=== PATIENT | male | born 1940 | race Caucasian/White ===

== ENCOUNTER 2020-04-13 11:40 | Emergency (ER) | payer OTHER ==
[~2020-04-13] VITALS: Ht 175.3 cm; Wt 77.2 kg
[~2020-04-13 11:40] MED LIST: ATEN25TA PO; GLIM4TAB8 PO; INSU100V8 SQ; LOVA10TA PO
--- NOTE | 2020-04-13 11:53 | NUR ---
LOW BLOOD SUGER, EMS REPORTS BS LOW THEN 135 AFTER GIVING D50 AND THIAMINE. BS IS 132 NOW. PT EMS REPORTS HX ALCOHOL ABUSE. PT IN BED WITH CONT SPO2, BPQ 30 MIN, SIDE RAILS UP X2,CALL LIGHT IN REACH.
[2020-04-13] MEDS ORDERED: DEXTROSE 10% 500 ML IV ONE (12:07)
--- NOTE | 2020-04-13 12:09 | NUR ---
TASK RN COVERING MEAL BREAK. PT RESTING, NAD. 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 PT UPDATED ON POC. URINAL PLACED ON TRAY TABLE, PT AWARE OF NEED FOR UA. CALL LIGHT WITHIN REACH.
[2020-04-13 12:19] LABS: BASOPHILS % (AUTO) 1 % (0-1); EOSINOPHILS # (AUTO) 0.01 x10^3/uL (0-0.4); EOSINOPHILS % (AUTO) 0 % (1-7); LYMPHOCYTES # (AUTO) 0.42 x10^3/uL (1-3.4); LYMPHOCYTES % (AUTO) 4 % (22-44); MD NO; MEAN CORPUSCULAR HEMOGLOBIN 36.1 pg (27.5-34.5); MEAN CORPUSCULAR HGB CONC 33.3 g/dL (33.2-36.2); MEAN CORPUSCULAR VOLUME 108.5 fL (81-97); MEAN PLATELET VOLUME 9.7 fL (7.4-10.4); MONOCYTES # (AUTO) 0.39 x10^3/uL (0.2-0.8); MONOCYTES % (AUTO) 4 % (2-9); NEUTROPHILS # (AUTO) 8.73 x10^3/uL (1.8-6.8); NEUTROPHILS % (AUTO) 90 % (42-75); PLATELET COUNT 196 x10^3/uL (130-400); RED BLOOD COUNT 3.17 x10^6/uL (4.38-5.82); RED CELL DISTRIBUTION WIDTH 16.5 % (9.4-14.8)
[2020-04-13 12:31] LABS: ALANINE AMINOTRANSFERASE 23 U/L (12-78); ALBUMIN 2.3 g/dL (3.4-5.0); ANION GAP 13 mmol/L (5-15); CALCIUM 8.3 mg/dL (8.5-10.1); CHLORIDE 101 mmol/L (98-107); CREATININE 0.89 mg/dL (0.7-1.3)
--- NOTE | 2020-04-13 12:31 | NUR ---
PT ATTEMPTED TO USE URINAL, URINATED ON BLANKET AND PANTS-UNABLE TO GET SPECIMEN. MED REQUEST FOR D10 TO PHARM AT 1220
[2020-04-13 12:36] LABS: ALKALINE PHOSPHATASE 135 U/L (45-117); BILIRUBIN,TOTAL 1.8 mg/dL (0.2-1.0); TOTAL PROTEIN 6.6 g/dL (6.4-8.2); TROPONIN I < 0.015 ng/mL (0.000-0.045)
[2020-04-13] MEDS ORDERED: POTASSIUM CHLORIDE 20 MEQ PACKET ONE (12:41)
[2020-04-13] MEDS ORDERED: POTASSIUM CHLORIDE 40 MEQ in DEXTROSE 10% 1,000 ML IV ONE (13:00)
[2020-04-13] MEDS ORDERED: POTASSIUM CHLORIDE 20 MEQ PACKET PO ONE (13:00)
--- NOTE | 2020-04-13 13:05 | NUR ---
CALLED [facility], SPOKE WITH CHANDAN, STATED THEY DO NOT CONTRACT WITH [facility].
[2020-04-13] MEDS ORDERED: POTASSIUM CHLORIDE 20 MEQ, MAGNESIUM SULFATE 2 GM, THIAMINE 200 MG, MVI ADULT 10 ML, FO... IV SCH (13:09)
--- NOTE | 2020-04-13 13:10 | NUR ---
CALLED [facility], SPOKE WITH ABIDA FERRO. STATED THEY WILL ACCEPT PT TRANSFER. PT AGREES TO TRANSFER.
[2020-04-13] MEDS ORDERED: LIDODERM 5% PATCH TD PRN (13:30)
[2020-04-13] MEDS ORDERED: BISACODYL 10 MG SUPP PR PRN (13:30)
[2020-04-13] MEDS ORDERED: ONDANSETRON ODT 4 MG PO PRN (13:30)
[2020-04-13] MEDS ORDERED: POLYETHYLENE GLYCOL 17 GM PACKET PO PRN (13:30)
[2020-04-13] MEDS ORDERED: hydrALAzine 20 MG/ML, 1ML IVPush PRN (13:30)
[2020-04-13] MEDS ORDERED: MELATONIN 5 MG TABLET PO PRN (13:30)
[2020-04-13] MEDS ORDERED: HEPARIN 5,000 UNITS/ML, 1ML SQ SCH (13:30)
[2020-04-13] MEDS ORDERED: ACETAMINOPHEN 325 MG TABLET PO PRN (13:30)
[2020-04-13 13:41] LABS: MICROSCOPIC AUTO
[2020-04-13 13:50] LABS: FREE T4 (FREE THYROXINE) 1.29 ng/dL (0.76-1.46)
--- NOTE | 2020-04-13 14:18 | NUR ---
PT SIGNED TRANSFER FORM. PRIMARY RN CALED REPORT TO BERTHA MERRITT IN [facility] ER. TRANSPORT BEING ARRANGED THROUGH [facility].
--- NOTE | 2020-04-13 14:19 | NUR ---
PT to ct
[2020-04-13] MEDS ORDERED: OMNIPAQUE 350 MG/ML, 75ML BOTTLE ONE (14:26)
[2020-04-13] MEDS ORDERED: LIDODERM REMOVE PATCH NOTE XX PRN (14:30)
--- NOTE | 2020-04-13 15:43 | NUR ---
EMS ESTIMATED THEY WOULD BE HERE BY 1500. THEY STILL HAVE NOT ARRIVED. EMS CALLED, STATED NO AMBULANCES AVAILABLE AT THIS TIME. NEXT AVAILABLE RIG WILL BE HEADED HERE. [facility] UPDATED.
[2020-04-13] MEDS ORDERED: INSULIN LISPRO 100 UNITS/ML, PEN SQ-INSULIN SCH (16:00)
[2020-04-13 16:12] VITALS: BP 124/74
[2020-04-14] MEDS ORDERED: PANTOPRAZOLE 40MG TABLET PO SCH (07:30)
[2020-04-14] MEDS ORDERED: LEVOFLOXACIN/PMX 750MG/150ML 150 ML IV SCH (10:00)
== END 2020-04-13 16:12 ==
LOC: ED 12:25 → UNDOADMOB 12:46 → EDIP 12:46 → INTOOBSV 12:46 → SUATTDRO 13:00 → ED 16:12
PROVIDERS: ATTEND Hospitalist
DX: R41.82 Altered mental status, unspecified (principal); E11.649 Type 2 diabetes mellitus with hypoglycemia without coma; E11.10 Type 2 diabetes mellitus with ketoacidosis without coma; E87.6 Hypokalemia; I10 Essential (primary) hypertension; E78.00 Pure hypercholesterolemia, unspecified; R10.9 Unspecified abdominal pain
CPT/HCPCS: 36415; 71045; 71260; 80053; 80307; 81001; 82962; 83036; 84439; 84443; 84484; 85025; 87077; 87086; 87186; 93005; 96365; 96366; 99284; J3480; Q9967

== ENCOUNTER 2021-03-22 09:31 | Inpatient (IN) | payer MEDICARE, OTHER ==
[~2021-03-22] VITALS: Ht 175.3 cm; Wt 83.0 kg
--- NOTE | 2021-03-22 09:56 | NUR ---
PT BIB EMS FOR CO WEAKNESS AND HYPERGLYCEMIA. PER EMS BS 412. PT STATES HE HAS BEEN FEELING WEAK FOR 2 WEEKS AND LACK OF CORDINATION. PT HX OF DIABETES, STATES HE DOESNT HAVE IT ANYMORE AND OFF MEDS FOR 3 MONTHS. COUPLE DAYS OF N/V. PT A&OX4, NEURO INTACT. TACHYPNEIC, TACHY, 113. HOSPITAL GLUCOMETER READS HIGH. PT DRY MUCOUS MEMBRANES. 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 IV ESTABLISHED 22 RIGHT WRIST.
[2021-03-22] MEDS ORDERED: SODIUM CHLORIDE 0.9% 1,000ML IVBOLUS ONE ×3 (10:00→13:30)
[2021-03-22 10:42] LABS: FIO2 ROOM AIR %
[2021-03-22 10:44] LABS: PH, VENOUS 7.013 pH (7.320-7.420)
[2021-03-22 10:51] LABS: ALANINE AMINOTRANSFERASE 7 U/L (12-78); ALBUMIN 1.2 g/dL (3.4-5.0); CREATININE 0.45 mg/dL (0.7-1.3)
[2021-03-22 10:53] LABS: ALKALINE PHOSPHATASE 41 U/L (45-117); BILIRUBIN,TOTAL 0.3 mg/dL (0.2-1.0); TOTAL PROTEIN 2.6 g/dL (6.4-8.2)
[2021-03-22 11:00] LABS: ACETONE, SERUM Large (80mg/dL) (Negative)
[2021-03-22 11:07] LABS: ANION GAP 16 mmol/L (5-15); CHLORIDE 130 mmol/L (98-107)
[2021-03-22 11:15] LABS: CALCIUM < 5.0 mg/dL (8.5-10.1)
--- NOTE | 2021-03-22 11:17 | NUR ---
STAND BEDSIDE, MAX ASSIST TO USE URINAL. PT WEAK.
--- NOTE | 2021-03-22 11:17 | NUR ---
RAFFY PENN MADE AWARE OF CRITICAL POTASSIUM OF 2.2, CO2 OF 3 & CALCIUM <5 PRIMARY RN MADE AWARE
[2021-03-22 11:22] LABS: MICROSCOPIC NOT IND
[2021-03-22] MEDS ORDERED: POTASSIUM CHLORIDE 40 MEQ in SODIUM CHLORIDE 0.9% 500 ML IV ONE ×2 (12:00→22:30)
[2021-03-22 12:05] LABS: ANION GAP 21 mmol/L (5-15); CALCIUM 9.1 mg/dL (8.5-10.1); CHLORIDE 108 mmol/L (98-107)
[2021-03-22 12:06] LABS: CREATININE 1.81 mg/dL (0.7-1.3)
--- NOTE | 2021-03-22 12:15 | NUR ---
ASSISTED PT TO USE URINAL LAYING ON SIDE.
--- NOTE | 2021-03-22 12:28 | NUR ---
LABS HEMOLYZED. LABS REDRAWN.
[2021-03-22 12:46] LABS: BASOPHILS % (AUTO) 0 % (0-1); EOSINOPHILS % (AUTO) 0 % (1-7); LYMPHOCYTES % (AUTO) 5 % (22-44); MEAN CORPUSCULAR HEMOGLOBIN 30.7 pg (27.5-34.5); MEAN CORPUSCULAR HGB CONC 31.3 g/dL (33.2-36.2); MEAN PLATELET VOLUME 11.9 fL (7.4-10.4); MONOCYTES % (AUTO) 4 % (2-9); NEUTROPHILS % (AUTO) 91 % (42-75); PLATELET COUNT 177 x10^3/uL (130-400); RED BLOOD COUNT 4.46 x10^6/uL (4.38-5.82); RED CELL DISTRIBUTION WIDTH 16.4 % (9.4-14.8)
--- NOTE | 2021-03-22 13:02 | NUR ---
SEEN BY MD FARAH. AWAITING FURTHER ORDERS.
[2021-03-22] MEDS ORDERED: CYAN100T22 PO (13:11)
[2021-03-22] MEDS ORDERED: ATEN50TA41 PO (13:11)
[2021-03-22] MEDS ORDERED: MAGN400T9 PO (13:11)
[2021-03-22] MEDS ORDERED: TAMS-11 PO (13:11)
[2021-03-22] MEDS ORDERED: MELA3TAB31 PO (13:11)
[2021-03-22] MEDS ORDERED: FOLI0.4T5 PO (13:11)
[2021-03-22] MEDS ORDERED: ALLO300T PO (13:11)
[2021-03-22] MEDS ORDERED: SENN-190 PO (13:11)
[2021-03-22] MEDS ORDERED: ATOR-2 PO (13:11)
--- NOTE | 2021-03-22 13:15 | NUR ---
GAVE PT WATER. PT CONFUSED TO SITUATION AND PLACE
[2021-03-22] MEDS ORDERED: hydrALAzine 20 MG/ML, 1ML IVPush PRN (13:30)
[2021-03-22] MEDS ORDERED: ONDANSETRON 2MG/ML, 2ML IVPush PRN (13:30)
[2021-03-22] MEDS ORDERED: REGULAR INSULIN 100 UNITS in SODIUM CHLORIDE 0.9% 99 ML IV PRN (13:30)
[2021-03-22] MEDS ORDERED: GLUCAGON 1 MG IM PRN (13:30)
[2021-03-22] MEDS ORDERED: ACETAMINOPHEN 325 MG TABLET PO PRN (13:30)
[2021-03-22] MEDS ORDERED: DEXTROSE 50%, 50ML SYRINGE IVPush PRN (13:30)
[2021-03-22] MEDS ORDERED: DEXTROSE 4 GM TAB.CHEW PO PRN (13:30)
--- NOTE | 2021-03-22 13:56 | NUR ---
REPORT TO FILI. PRABHJOT FOR [facility]
[2021-03-22] MEDS ORDERED: PHARMACY MAY ADJ FOR RENAL FX MC PRN (14:00)
[2021-03-22] MEDS: SODIUM CHLORIDE 0.9% 1,000 ML IV SCH ×2 (14:55→17:45)
[2021-03-22] MEDS: ENOXAPARIN 40 MG/0.4 ML SQ SCH (14:57)
[2021-03-22] MEDS: REGULAR INSULIN 100 UNITS in SODIUM CHLORIDE 0.9% 99 ML IV PRN ×2 (14:57→21:18)
[2021-03-22 17:24] LABS: ANION GAP 19 mmol/L (5-15); CALCIUM 9.2 mg/dL (8.5-10.1); CHLORIDE 117 mmol/L (98-107); CREATININE 1.85 mg/dL (0.7-1.3)
[2021-03-22] MEDS: ATORVASTATIN 20 MG TABLET PO SCH (21:07)
[2021-03-22] MEDS: SODIUM CHLORIDE FLUSH 10ML SYR IVF SCH (21:10)
[2021-03-22 21:45] LABS: CALCIUM 9.4 mg/dL (8.5-10.1)
[2021-03-22 22:03] LABS: ANION GAP 15 mmol/L (5-15); CHLORIDE 125 mmol/L (98-107)
[2021-03-22] MEDS ORDERED: POTASSIUM CHLORIDE 20 MEQ PACKET PO ONE (22:30)
[2021-03-23] MEDS: SODIUM CHLORIDE 0.9% 1,000 ML IV SCH ×2 (00:34→04:30)
[2021-03-23 01:08] LABS: ANION GAP 10 mmol/L (5-15); CALCIUM 9.3 mg/dL (8.5-10.1); CHLORIDE 131 mmol/L (98-107); CREATININE 1.31 mg/dL (0.7-1.3)
[2021-03-23] MEDS: D5%-0.45NACL+KCL 20MEQ 1,000 ML IV SCH ×2 (01:18→09:44)
[2021-03-23 04:48] LABS: BASOPHILS % (AUTO) 1 % (0-1); EOSINOPHILS % (AUTO) 0 % (1-7); LYMPHOCYTES % (AUTO) 7 % (22-44); MEAN CORPUSCULAR HEMOGLOBIN 30.6 pg (27.5-34.5); MEAN CORPUSCULAR HGB CONC 32.5 g/dL (33.2-36.2); MEAN PLATELET VOLUME 10.9 fL (7.4-10.4); MONOCYTES % (AUTO) 12 % (2-9); NEUTROPHILS % (AUTO) 81 % (42-75); PLATELET COUNT 136 x10^3/uL (130-400); RED BLOOD COUNT 3.75 x10^6/uL (4.38-5.82); RED CELL DISTRIBUTION WIDTH 15.7 % (9.4-14.8)
[2021-03-23 04:55] LABS: ALANINE AMINOTRANSFERASE 15 U/L (12-78); ALBUMIN 2.7 g/dL (3.4-5.0); ANION GAP 8 mmol/L (5-15); CALCIUM 9.7 mg/dL (8.5-10.1); CHLORIDE 130 mmol/L (98-107); CREATININE 1.24 mg/dL (0.7-1.3)
[2021-03-23 05:06] LABS: ALKALINE PHOSPHATASE 76 U/L (45-117); BILIRUBIN,TOTAL 0.4 mg/dL (0.2-1.0); TOTAL PROTEIN 5.4 g/dL (6.4-8.2)
[2021-03-23] MEDS: POTASSIUM ACID PHOSPHATE 500 MG TABLET.SOL PO SCH ×3 (07:23→20:36)
[2021-03-23] MEDS ORDERED: POTASSIUM PHOSPHATE 44 MEQ in SODIUM CHLORIDE 0.9% 500 ML IV ONE (07:30)
[2021-03-23] MEDS: CYANOCOBALOMIN 100MCG TABLET PO SCH (08:47)
[2021-03-23] MEDS: ATENOLOL 50 MG TABLET PO SCH (08:47)
[2021-03-23] MEDS: ALLOPURINOL 300 MG TABLET PO SCH (08:47)
[2021-03-23] MEDS: TAMSULOSIN 0.4 MG CAP.ER.24H PO SCH (08:47)
[2021-03-23] MEDS: SODIUM CHLORIDE FLUSH 10ML SYR IVF SCH ×2 (08:47→20:35)
[2021-03-23 10:08] LABS: ANION GAP 6 mmol/L (5-15); CALCIUM 9.7 mg/dL (8.5-10.1); CHLORIDE 130 mmol/L (98-107)
[2021-03-23 10:09] LABS: CREATININE 1.33 mg/dL (0.7-1.3)
[2021-03-23] MEDS: D5%-0.45% NACL 1,000 ML IV PRN ×2 (10:50→18:12)
[2021-03-23] MEDS: REGULAR INSULIN 100 UNITS in SODIUM CHLORIDE 0.9% 99 ML IV PRN (11:40)
[2021-03-23 13:58] LABS: ANION GAP 5 mmol/L (5-15); CALCIUM 9.8 mg/dL (8.5-10.1); CHLORIDE 131 mmol/L (98-107); CREATININE 1.24 mg/dL (0.7-1.3)
[2021-03-23] MEDS: ENOXAPARIN 40 MG/0.4 ML SQ SCH (14:37)
[2021-03-23 18:10] LABS: ANION GAP 5 mmol/L (5-15); CALCIUM 9.9 mg/dL (8.5-10.1); CHLORIDE 134 mmol/L (98-107); CREATININE 1.21 mg/dL (0.7-1.3)
[2021-03-23] MEDS: DEXTROSE 5% 1,000 ML IV SCH (18:23)
[2021-03-23] MEDS: ATORVASTATIN 20 MG TABLET PO SCH (20:35)
[2021-03-23] MEDS: OXYcodone IR 5MG TABLET PO PRN (20:36)
[2021-03-23 23:16] LABS: ANION GAP 6 mmol/L (5-15); CALCIUM 9.9 mg/dL (8.5-10.1); CHLORIDE 129 mmol/L (98-107)
[2021-03-23 23:17] LABS: CREATININE 1.19 mg/dL (0.7-1.3)
[2021-03-24] MEDS: OXYcodone IR 5MG TABLET PO PRN (01:10)
[2021-03-24 01:52] LABS: ANION GAP 7 mmol/L (5-15); CALCIUM 9.8 mg/dL (8.5-10.1); CHLORIDE 129 mmol/L (98-107); CREATININE 1.15 mg/dL (0.7-1.3)
[2021-03-24] MEDS: POTASSIUM ACID PHOSPHATE 500 MG TABLET.SOL PO SCH (02:49)
[2021-03-24] MEDS: DEXTROSE 5% 1,000 ML IV SCH (02:50)
[2021-03-24 06:01] LABS: ANION GAP 5 mmol/L (5-15); CHLORIDE 129 mmol/L (98-107)
[2021-03-24 06:02] LABS: CREATININE 1.07 mg/dL (0.7-1.3)
[2021-03-24] MEDS ORDERED: PHARMACY INSTRUCTION MC PRN (07:00)
[2021-03-24] MEDS: INSULIN LISPRO 100 UNITS/ML, PEN SQ-INSULIN SCH ×4 (07:00→20:53)
[2021-03-24] MEDS: CYANOCOBALOMIN 100MCG TABLET PO SCH (07:17)
[2021-03-24] MEDS: ALLOPURINOL 300 MG TABLET PO SCH (07:17)
[2021-03-24] MEDS: ATENOLOL 50 MG TABLET PO SCH (07:17)
[2021-03-24] MEDS: SODIUM CHLORIDE FLUSH 10ML SYR IVF SCH ×2 (07:18→20:51)
[2021-03-24] MEDS: INSULIN GLARGINE 100 UNITS/ML, PEN SQ-INSULIN SCH ×3 (07:18→20:55)
[2021-03-24] MEDS: TAMSULOSIN 0.4 MG CAP.ER.24H PO SCH (07:19)
[2021-03-24 07:46] LABS: BASOPHILS % (AUTO) 0 % (0-1); EOSINOPHILS % (AUTO) 0 % (1-7); LYMPHOCYTES % (AUTO) 6 % (22-44); MEAN CORPUSCULAR HEMOGLOBIN 30.6 pg (27.5-34.5); MEAN CORPUSCULAR HGB CONC 32.8 g/dL (33.2-36.2); MEAN PLATELET VOLUME 10.7 fL (7.4-10.4); MONOCYTES % (AUTO) 6 % (2-9); NEUTROPHILS % (AUTO) 87 % (42-75); PLATELET COUNT 80 x10^3/uL (130-400); RED BLOOD COUNT 3.03 x10^6/uL (4.38-5.82); RED CELL DISTRIBUTION WIDTH 16.3 % (9.4-14.8)
[2021-03-24 08:19] LABS: CHOL/HDL RATIO 2.8; LDL/HDL RATIO 0.6 (0.5-3.0)
[2021-03-24] MEDS: LACTATED RINGERS 1,000 ML IV SCH ×2 (08:40→16:00)
[2021-03-24 13:49] LABS: ANION GAP 6 mmol/L (5-15); CALCIUM 10.2 mg/dL (8.5-10.1); CHLORIDE 128 mmol/L (98-107); CREATININE 1.07 mg/dL (0.7-1.3)
[2021-03-24] MEDS: ENOXAPARIN 40 MG/0.4 ML SQ SCH (13:49)
[2021-03-24 19:00] VITALS: BP 136/79
[2021-03-24 19:05] VITALS: BP 136/79
[2021-03-24] MEDS: ATORVASTATIN 20 MG TABLET PO SCH (20:51)
[2021-03-24 20:53] LABS: ANION GAP 6 mmol/L (5-15); CHLORIDE 127 mmol/L (98-107); CREATININE 0.87 mg/dL (0.7-1.3)
[2021-03-25 00:28] VITALS: BP 155/66
[2021-03-25 05:34] LABS: BASOPHILS % (AUTO) 0 % (0-1); EOSINOPHILS % (AUTO) 0 % (1-7); LYMPHOCYTES % (AUTO) 10 % (22-44); MEAN CORPUSCULAR HEMOGLOBIN 31.1 pg (27.5-34.5); MEAN CORPUSCULAR HGB CONC 33.9 g/dL (33.2-36.2); MEAN PLATELET VOLUME 11.8 fL (7.4-10.4); MONOCYTES % (AUTO) 9 % (2-9); NEUTROPHILS % (AUTO) 81 % (42-75); PLATELET COUNT 71 x10^3/uL (130-400); RED BLOOD COUNT 2.75 x10^6/uL (4.38-5.82); RED CELL DISTRIBUTION WIDTH 15.8 % (9.4-14.8)
[2021-03-25 05:41] LABS: ANION GAP 7 mmol/L (5-15); CALCIUM 9.3 mg/dL (8.5-10.1); CHLORIDE 127 mmol/L (98-107); CREATININE 0.78 mg/dL (0.7-1.3)
[2021-03-25] MEDS: LACTATED RINGERS 1,000 ML IV SCH (05:42)
[2021-03-25] MEDS ORDERED: MAGNESIUM SULFATE PMX 2GM/50ML 50 ML IV ONE (06:30)
[2021-03-25] MEDS ORDERED: POTASSIUM CHLORIDE 20 MEQ in SODIUM CHLORIDE 0.9% 250 ML IV ONE ×2 (06:30)
[2021-03-25] MEDS ORDERED: POTASSIUM PHOSPHATE 22 MEQ in SODIUM CHLORIDE 0.9% 500 ML IV ONE (06:30)
[2021-03-25] MEDS: INSULIN LISPRO 100 UNITS/ML, PEN SQ-INSULIN SCH ×5 (07:00→21:44)
[2021-03-25] MEDS: CYANOCOBALOMIN 100MCG TABLET PO SCH (07:40)
[2021-03-25] MEDS: ALLOPURINOL 300 MG TABLET PO SCH (07:40)
[2021-03-25] MEDS: ATENOLOL 50 MG TABLET PO SCH (07:40)
[2021-03-25] MEDS: TAMSULOSIN 0.4 MG CAP.ER.24H PO SCH (07:41)
[2021-03-25] MEDS: SODIUM CHLORIDE FLUSH 10ML SYR IVF SCH ×2 (07:42→21:45)
[2021-03-25] MEDS: INSULIN GLARGINE 100 UNITS/ML, PEN SQ-INSULIN SCH ×2 (09:12→21:45)
[2021-03-25 09:16] VITALS: BP 122/71
[2021-03-25 09:36] LABS: ACETONE, SERUM Moderate(40mg/dL) (Negative)
[2021-03-25 11:45] LABS: ANION GAP 7 mmol/L (5-15); CALCIUM 9.5 mg/dL (8.5-10.1); CHLORIDE 131 mmol/L (98-107); CREATININE 0.82 mg/dL (0.7-1.3)
[2021-03-25] MEDS ORDERED: SODIUM BICARBONATE 8.4% 150 MEQ in DEXTROSE 5% 1,000 ML IV SCH (12:30)
[2021-03-25] MEDS: SODIUM CHLORIDE 0.45% 1,000 ML IV SCH (16:37)
[2021-03-25 19:56] VITALS: BP 117/55
[2021-03-25] MEDS: ATORVASTATIN 20 MG TABLET PO SCH (21:44)
[2021-03-26] MEDS: OXYcodone IR 5MG TABLET PO PRN
[2021-03-26 00:10] VITALS: BP 128/61
[2021-03-26] MEDS: SODIUM CHLORIDE 0.45% 1,000 ML IV SCH (03:13)
[2021-03-26 06:32] LABS: BASOPHILS % (AUTO) 1 % (0-1); EOSINOPHILS % (AUTO) 2 % (1-7); LYMPHOCYTES % (AUTO) 20 % (22-44); MEAN CORPUSCULAR HEMOGLOBIN 30.8 pg (27.5-34.5); MEAN CORPUSCULAR HGB CONC 33.8 g/dL (33.2-36.2); MEAN PLATELET VOLUME 10.9 fL (7.4-10.4); MONOCYTES % (AUTO) 8 % (2-9); NEUTROPHILS % (AUTO) 69 % (42-75); PLATELET COUNT 67 x10^3/uL (130-400); RED BLOOD COUNT 2.54 x10^6/uL (4.38-5.82); RED CELL DISTRIBUTION WIDTH 15.9 % (9.4-14.8)
[2021-03-26 06:33] LABS: ANION GAP 5 mmol/L (5-15); CALCIUM 8.6 mg/dL (8.5-10.1); CHLORIDE 125 mmol/L (98-107); CREATININE 0.73 mg/dL (0.7-1.3)
[2021-03-26 06:45] VITALS: BP 111/64
[2021-03-26] MEDS: INSULIN LISPRO 100 UNITS/ML, PEN SQ-INSULIN SCH ×4 (07:00→21:17)
[2021-03-26] MEDS: TAMSULOSIN 0.4 MG CAP.ER.24H PO SCH (08:00)
[2021-03-26] MEDS: ALLOPURINOL 300 MG TABLET PO SCH (08:00)
[2021-03-26] MEDS: SODIUM CHLORIDE FLUSH 10ML SYR IVF SCH ×2 (08:00→21:16)
[2021-03-26] MEDS: ATENOLOL 50 MG TABLET PO SCH (08:00)
[2021-03-26] MEDS: CYANOCOBALOMIN 100MCG TABLET PO SCH (08:00)
[2021-03-26] MEDS: INSULIN GLARGINE 100 UNITS/ML, PEN SQ-INSULIN SCH (09:00)
[2021-03-26] MEDS: POLYETHYLENE GLYCOL 17 GM PACKET PO PRN (10:03)
[2021-03-26] MEDS: POTASSIUM CHLORIDE 20 MEQ in D5%-0.2% NACL 1,000 ML IV SCH ×2 (10:55→23:50)
[2021-03-26] MEDS: FONDAPARINUX 2.5 MG/0.5 ML SQ SCH (13:57)
[2021-03-26] MEDS: POTASSIUM CHLORIDE 20 MEQ PACKET PO SCH (17:44)
[2021-03-26 21:10] VITALS: BP 110/62
[2021-03-26] MEDS: ATORVASTATIN 20 MG TABLET PO SCH (21:16)
[2021-03-26 23:52] VITALS: BP 118/72
[2021-03-27] MEDS ORDERED: SENNA/DOCUSATE TABLET PO PRN (00:30)
[2021-03-27] MEDS ORDERED: CATHFLO-ALTEPLASE 2 MG/2 ML CATHFLUSH ONE (04:00)
[2021-03-27 05:20] LABS: BASOPHILS % (AUTO) 1 % (0-1); EOSINOPHILS % (AUTO) 2 % (1-7); LYMPHOCYTES % (AUTO) 20 % (22-44); MONOCYTES % (AUTO) 8 % (2-9); NEUTROPHILS % (AUTO) 70 % (42-75); PLATELET COUNT 81 x10^3/uL (130-400); RED BLOOD COUNT 2.34 x10^6/uL (4.38-5.82); RED CELL DISTRIBUTION WIDTH 15.9 % (9.4-14.8)
[2021-03-27 05:35] LABS: CHLORIDE 119 mmol/L (98-107)
[2021-03-27 05:46] LABS: ALANINE AMINOTRANSFERASE 16 U/L (12-78); ALBUMIN 2.1 g/dL (3.4-5.0); ALKALINE PHOSPHATASE 65 U/L (45-117); ANION GAP 6 mmol/L (5-15); BILIRUBIN,TOTAL 0.7 mg/dL (0.2-1.0); CALCIUM 8.1 mg/dL (8.5-10.1); CREATININE 0.75 mg/dL (0.7-1.3); TOTAL PROTEIN 4.5 g/dL (6.4-8.2)
[2021-03-27] MEDS ORDERED: POTASSIUM PHOSPHATE 22 MEQ in SODIUM CHLORIDE 0.9% 500 ML IV ONE (06:30)
[2021-03-27] MEDS ORDERED: MAGNESIUM SULFATE PMX 4GM/100M 100 ML IVPB ONE (06:30)
[2021-03-27 07:22] VITALS: BP 114/64
[2021-03-27] MEDS: POLYETHYLENE GLYCOL 17 GM PACKET PO PRN (07:38)
[2021-03-27] MEDS: INSULIN LISPRO 100 UNITS/ML, PEN SQ-INSULIN SCH ×4 (07:39→19:41)
[2021-03-27] MEDS: SODIUM CHLORIDE FLUSH 10ML SYR IVF SCH ×2 (09:00→19:42)
[2021-03-27] MEDS ORDERED: FAMOTIDINE 20 MG TABLET PO SCH (09:00)
[2021-03-27] MEDS ORDERED: INSULIN GLARGINE 100 UNITS/ML, PEN SQ-INSULIN SCH (09:00)
[2021-03-27] MEDS ORDERED: FAMOTIDINE 20 MG TABLET ONE (09:07)
[2021-03-27] MEDS: FONDAPARINUX 2.5 MG/0.5 ML SQ SCH (09:09)
[2021-03-27] MEDS: POTASSIUM CHLORIDE 20 MEQ PACKET PO SCH ×2 (09:10→17:45)
[2021-03-27] MEDS: ATENOLOL 50 MG TABLET PO SCH (09:10)
[2021-03-27] MEDS: TAMSULOSIN 0.4 MG CAP.ER.24H PO SCH (09:10)
[2021-03-27] MEDS: ALLOPURINOL 300 MG TABLET PO SCH (09:10)
[2021-03-27] MEDS: CYANOCOBALOMIN 100MCG TABLET PO SCH (09:10)
[2021-03-27] MEDS: INSULIN GLARGINE 100 UNITS/ML, PEN SQ-INSULIN SCH (09:11)
[2021-03-27] MEDS: SENNA/DOCUSATE TABLET PO PRN (09:18)
[2021-03-27 15:51] VITALS: BP 98/62
[2021-03-27] MEDS: PANTOPRAZOLE 40 MG IV IVPush SCH (17:45)
[2021-03-27] MEDS: POTASSIUM CHLORIDE 20 MEQ in D5%-0.2% NACL 1,000 ML IV SCH (17:45)
[2021-03-27 18:33] VITALS: BP 100/66
[2021-03-27] MEDS: ATORVASTATIN 20 MG TABLET PO SCH (19:41)
[2021-03-27] MEDS ORDERED: TEMAZEPAM 15 MG CAPSULE PO PRN (22:30)
[2021-03-28 00:09] VITALS: BP 115/67
[2021-03-28] MEDS ORDERED: MELATONIN 5 MG TABLET ONE (01:59)
[2021-03-28 04:51] LABS: MEAN CORPUSCULAR HEMOGLOBIN 31.3 pg (27.5-34.5); MEAN CORPUSCULAR HGB CONC 33.5 g/dL (33.2-36.2); MEAN PLATELET VOLUME 10.7 fL (7.4-10.4); PLATELET COUNT 87 x10^3/uL (130-400); RED BLOOD COUNT 2.39 x10^6/uL (4.38-5.82); RED CELL DISTRIBUTION WIDTH 16.5 % (9.4-14.8)
[2021-03-28 04:59] LABS: ANION GAP 6 mmol/L (5-15); CALCIUM 8.7 mg/dL (8.5-10.1); CHLORIDE 118 mmol/L (98-107); CREATININE 0.79 mg/dL (0.7-1.3)
[2021-03-28] MEDS: PANTOPRAZOLE 40 MG IV IVPush SCH ×2 (05:15→17:18)
[2021-03-28 05:41] LABS: ANISOCYTOSIS 1+; BAND#(MANUAL) 0.06 x10^3/uL; BANDS%(MANUAL) 1 % (0-7); EOS#(MANUAL) 0.23 x10^3/uL (0.0-0.4); EOS% (MANUAL) 4 % (1-7); LYMPHS% (MANUAL) 21 % (22-44); MONOS% (MANUAL) 7 % (2-9); MYELOCYTES# (MANUAL) 0.06 x10^3/uL (0-0); MYELOCYTES% (MANUAL) 1 % (0-0); POLYCHROMASIA 1+; SEG#(MANUAL) 3.76 x10^3/uL (1.8-6.8); SEGS% (MANUAL) 66 % (42-75)
[2021-03-28 05:42] LABS: <PLATELET ESTIMATE> DECREASED; <PLT MORPHOLOGY> NORMAL PLT MORPH
[2021-03-28 07:55] VITALS: BP 126/64
[2021-03-28] MEDS: POTASSIUM CHLORIDE 20 MEQ PACKET PO SCH ×2 (07:59→16:12)
[2021-03-28] MEDS: INSULIN LISPRO 100 UNITS/ML, PEN SQ-INSULIN SCH ×4 (08:15→20:47)
[2021-03-28] MEDS: ATENOLOL 50 MG TABLET PO SCH (08:17)
[2021-03-28] MEDS: ALLOPURINOL 300 MG TABLET PO SCH (08:17)
[2021-03-28] MEDS: TAMSULOSIN 0.4 MG CAP.ER.24H PO SCH (08:18)
[2021-03-28] MEDS: CYANOCOBALOMIN 100MCG TABLET PO SCH (08:18)
[2021-03-28] MEDS: FONDAPARINUX 2.5 MG/0.5 ML SQ SCH (08:19)
[2021-03-28] MEDS: SODIUM CHLORIDE FLUSH 10ML SYR IVF SCH ×2 (08:22→20:47)
[2021-03-28 08:24] VITALS: BP 126/63
[2021-03-28] MEDS: INSULIN GLARGINE 100 UNITS/ML, PEN SQ-INSULIN SCH (08:26)
[2021-03-28] MEDS ORDERED: FAMOTIDINE 20 MG TABLET PO SCH (09:00)
[2021-03-28 13:32] VITALS: BP 103/53
[2021-03-28 14:00] VITALS: BP 118/61
[2021-03-28] MEDS: POLYETHYLENE GLYCOL 17 GM PACKET PO PRN (16:12)
[2021-03-28 16:46] LABS: OCCULT BLOOD POSITIVE (NEGATIVE)
[2021-03-28] MEDS: POTASSIUM CHLORIDE 20 MEQ in D5%-0.2% NACL 1,000 ML IV SCH (17:08)
[2021-03-28 19:37] VITALS: BP 142/69
[2021-03-28] MEDS: RISPERIDONE 1 MG TABLET PO SCH (20:46)
[2021-03-28] MEDS: ATORVASTATIN 20 MG TABLET PO SCH (20:47)
[2021-03-29 01:01] VITALS: BP 117/58
[2021-03-29] MEDS: PANTOPRAZOLE 40 MG IV IVPush SCH ×2 (04:26→17:08)
[2021-03-29] MEDS: POTASSIUM CHLORIDE 20 MEQ in D5%-0.2% NACL 1,000 ML IV SCH ×2 (04:35→17:08)
[2021-03-29] MEDS: TAMSULOSIN 0.4 MG CAP.ER.24H PO SCH (07:36)
[2021-03-29] MEDS: CYANOCOBALOMIN 100MCG TABLET PO SCH (07:36)
[2021-03-29] MEDS: ALLOPURINOL 300 MG TABLET PO SCH (07:36)
[2021-03-29] MEDS: INSULIN LISPRO 100 UNITS/ML, PEN SQ-INSULIN SCH ×4 (07:36→20:31)
[2021-03-29] MEDS: ATENOLOL 50 MG TABLET PO SCH (07:36)
[2021-03-29] MEDS: POTASSIUM CHLORIDE 20 MEQ PACKET PO SCH ×2 (07:36→17:08)
[2021-03-29] MEDS: INSULIN GLARGINE 100 UNITS/ML, PEN SQ-INSULIN SCH (07:37)
[2021-03-29] MEDS: SODIUM CHLORIDE FLUSH 10ML SYR IVF SCH ×2 (07:37→20:30)
[2021-03-29] MEDS: FONDAPARINUX 2.5 MG/0.5 ML SQ SCH (07:37)
[2021-03-29 07:38] VITALS: BP 147/78
[2021-03-29 13:21] VITALS: BP 126/74
[2021-03-29 16:03] LABS: MEAN CORPUSCULAR HEMOGLOBIN 31.1 pg (27.5-34.5); MEAN CORPUSCULAR HGB CONC 33.1 g/dL (33.2-36.2); MEAN PLATELET VOLUME 10.4 fL (7.4-10.4); PLATELET COUNT 143 x10^3/uL (130-400); RED BLOOD COUNT 2.37 x10^6/uL (4.38-5.82)
[2021-03-29 16:28] LABS: INTERNATIONAL NORMALIZED RATIO 1.08 (0.93-1.1); PROTHROMBIN TIME 11.5 Seconds (9.6-11.5)
[2021-03-29 16:34] LABS: ANISOCYTOSIS 1+; BAND#(MANUAL) 0.61 x10^3/uL; BANDS%(MANUAL) 11 % (0-7); BASOS#(MANUAL) 0.06 x10^3/uL (0-0.1); BASOS% (MANUAL) 1 % (0-1); EOS#(MANUAL) 0.06 x10^3/uL (0.0-0.4); EOS% (MANUAL) 1 % (1-7); LYMPH#(MANUAL) 1.05 x10^3/uL (1-3.4); LYMPHS% (MANUAL) 19 % (22-44); METAMYELOCYTES# (MANUAL) 0.06 x10^3/uL (0-0); METAMYELOCYTES% (MANUAL) 1 % (0-1); MONOS#(MANUAL) 0.22 x10^3/uL (0.3-2.7); MONOS% (MANUAL) 4 % (2-9); MYELOCYTES# (MANUAL) 0.06 x10^3/uL (0-0); MYELOCYTES% (MANUAL) 1 % (0-0); SEG#(MANUAL) 3.41 x10^3/uL (1.8-6.8); SEGS% (MANUAL) 62 % (42-75)
[2021-03-29 16:35] LABS: <PLATELET ESTIMATE> ADEQUATE; <PLT MORPHOLOGY> NORMAL PLT MORPH; OVALOCYTES 1+; POLYCHROMASIA 1+
[2021-03-29 18:26] VITALS: BP 113/67
[2021-03-29] MEDS: ATORVASTATIN 20 MG TABLET PO SCH (20:28)
[2021-03-29] MEDS: RISPERIDONE 1 MG TABLET PO SCH (20:28)
[2021-03-30] VITALS (9 sets, daily range): BP systolic 85–128; BP diastolic 39–73
[2021-03-30] MEDS: PANTOPRAZOLE 40 MG IV IVPush SCH ×2 (04:53→17:00)
[2021-03-30] MEDS: POTASSIUM CHLORIDE 20 MEQ PACKET PO SCH ×3 (08:00→19:08)
[2021-03-30] MEDS: ATENOLOL 50 MG TABLET PO SCH (08:13)
[2021-03-30] MEDS: SODIUM CHLORIDE FLUSH 10ML SYR IVF SCH ×2 (08:14→21:59)
[2021-03-30] MEDS: INSULIN LISPRO 100 UNITS/ML, PEN SQ-INSULIN SCH ×4 (08:19→21:00)
[2021-03-30] MEDS: INSULIN GLARGINE 100 UNITS/ML, PEN SQ-INSULIN SCH (09:00)
[2021-03-30] MEDS: CYANOCOBALOMIN 100MCG TABLET PO SCH (09:00)
[2021-03-30] MEDS: ALLOPURINOL 300 MG TABLET PO SCH (09:00)
[2021-03-30] MEDS: FONDAPARINUX 2.5 MG/0.5 ML SQ SCH (09:00)
[2021-03-30] MEDS: TAMSULOSIN 0.4 MG CAP.ER.24H PO SCH (09:00)
[2021-03-30] MEDS ORDERED: CHLORHEXIDINE 15 ML UDC PO ONE (09:00)
[2021-03-30] MEDS ORDERED: EPHEDRINE 50 MG/ML, 1ML ONE ×2 (09:13→09:38)
[2021-03-30] MEDS ORDERED: PROPOFOL 10 MG/ML, 20ML ONE (09:13)
[2021-03-30] MEDS ORDERED: VASOPRESSIN 20 UNIT/ML, 1ML ONE (09:13)
[2021-03-30] MEDS ORDERED: PROMETHAZINE 12.5 MG SUPP PR PRN (10:00)
[2021-03-30] MEDS ORDERED: PROMETHAZINE 25 MG/ML, 1ML IVPush PRN (10:00)
[2021-03-30] MEDS ORDERED: ONDANSETRON 2MG/ML, 2ML IVPush PRN (10:00)
[2021-03-30] MEDS ORDERED: MIDAZOLAM 1 MG/ML, 2ML IV PRN (10:00)
[2021-03-30] MEDS ORDERED: MEPERIDINE/PF 25MG/0.5ML IVPush PRN (10:00)
[2021-03-30] MEDS ORDERED: HYDROmorphone 1 MG/ML, 1ML INJ IVPush PRN (10:00)
[2021-03-30] MEDS ORDERED: ALBUTEROL SULFATE 2.5 MG/3 ML NPPB PRN (10:00)
[2021-03-30] MEDS ORDERED: OXYcodone 5 MG/5 ML ORAL.SOL UDC PO PRN (10:00)
[2021-03-30] MEDS ORDERED: DIAZEPAM 5 MG/ML, 2ML IVPush PRN (10:00)
[2021-03-30] MEDS ORDERED: DIPHENHYDRAMINE 50 MG/ML, 1ML IVPush PRN ×2 (10:00)
[2021-03-30] MEDS ORDERED: LABETALOL 5MG/ML, 20ML IV PRN (10:00)
[2021-03-30] MEDS ORDERED: FENTANYL PF 100 MCG/2ML IV PRN (10:00)
[2021-03-30] MEDS ORDERED: EPHEDRINE 50 MG/ML, 1ML IVPush PRN (10:00)
[2021-03-30] MEDS ORDERED: hydrALAzine 20 MG/ML, 1ML IV PRN (10:00)
[2021-03-30] MEDS: SUCRALFATE 1 GM/10 ML UDC PO SCH ×3 (13:24→21:58)
[2021-03-30] MEDS: POTASSIUM CHLORIDE 20 MEQ in D5%-0.2% NACL 1,000 ML IV SCH (19:01)
[2021-03-30] MEDS: PANTOPRAZOLE 40MG TABLET PO SCH (21:58)
[2021-03-30] MEDS: ATORVASTATIN 20 MG TABLET PO SCH (21:58)
[2021-03-30] MEDS: RISPERIDONE 1 MG TABLET PO SCH (21:59)
[2021-03-30] MEDS: MELATONIN 5 MG TABLET PO PRN (23:02)
[2021-03-31 00:49] VITALS: BP 100/57
[2021-03-31] MEDS ORDERED: CATHFLO-ALTEPLASE 2 MG/2 ML CATHFLUSH ONE (05:30)
[2021-03-31] MEDS ORDERED: [UNRECOGNIZED DRUG - MIXTURE] MC SCH (06:00)
[2021-03-31] MEDS: POTASSIUM CHLORIDE 20 MEQ in D5%-0.2% NACL 1,000 ML IV SCH (06:18)
[2021-03-31] MEDS: PANTOPRAZOLE 40MG TABLET PO SCH ×2 (06:26→16:14)
[2021-03-31 06:59] VITALS: BP 135/62
[2021-03-31] MEDS: INSULIN GLARGINE 100 UNITS/ML, PEN SQ-INSULIN SCH (08:07)
[2021-03-31] MEDS: INSULIN LISPRO 100 UNITS/ML, PEN SQ-INSULIN SCH ×4 (08:07→20:41)
[2021-03-31] MEDS: FONDAPARINUX 2.5 MG/0.5 ML SQ SCH (08:08)
[2021-03-31] MEDS: CYANOCOBALOMIN 100MCG TABLET PO SCH (08:09)
[2021-03-31] MEDS: SUCRALFATE 1 GM/10 ML UDC PO SCH ×4 (08:09→20:28)
[2021-03-31] MEDS: ATENOLOL 50 MG TABLET PO SCH (08:09)
[2021-03-31] MEDS: TAMSULOSIN 0.4 MG CAP.ER.24H PO SCH (08:09)
[2021-03-31] MEDS: POTASSIUM CHLORIDE 20 MEQ PACKET PO SCH ×2 (08:09→16:14)
[2021-03-31] MEDS: ALLOPURINOL 300 MG TABLET PO SCH (08:09)
[2021-03-31] MEDS: SODIUM CHLORIDE FLUSH 10ML SYR IVF SCH ×2 (08:11→20:29)
[2021-03-31 13:39] VITALS: BP 101/58
[2021-03-31 18:27] VITALS: BP 109/58
[2021-03-31] MEDS: MELATONIN 5 MG TABLET PO PRN (20:28)
[2021-03-31] MEDS: RISPERIDONE 1 MG TABLET PO SCH (20:28)
[2021-03-31] MEDS: ATORVASTATIN 20 MG TABLET PO SCH (20:28)
[2021-03-31] MEDS: OXYcodone IR 5MG TABLET PO PRN (20:32)
[2021-04-01 03:20] VITALS: BP 105/59
[2021-04-01] MEDS: PANTOPRAZOLE 40MG TABLET PO SCH ×2 (06:32→17:04)
[2021-04-01 06:57] VITALS: BP 119/68
[2021-04-01] MEDS: INSULIN LISPRO 100 UNITS/ML, PEN SQ-INSULIN SCH ×4 (07:00→21:31)
[2021-04-01] MEDS: CYANOCOBALOMIN 100MCG TABLET PO SCH (07:54)
[2021-04-01] MEDS: INSULIN GLARGINE 100 UNITS/ML, PEN SQ-INSULIN SCH (07:54)
[2021-04-01] MEDS: ALLOPURINOL 300 MG TABLET PO SCH (07:54)
[2021-04-01] MEDS: TAMSULOSIN 0.4 MG CAP.ER.24H PO SCH (07:54)
[2021-04-01] MEDS: ATENOLOL 50 MG TABLET PO SCH (07:55)
[2021-04-01] MEDS: SUCRALFATE 1 GM/10 ML UDC PO SCH ×4 (07:55→21:32)
[2021-04-01] MEDS: SODIUM CHLORIDE FLUSH 10ML SYR IVF SCH ×2 (07:55→21:32)
[2021-04-01] MEDS: POTASSIUM CHLORIDE 20 MEQ PACKET PO SCH ×2 (07:55→17:04)
[2021-04-01 12:19] VITALS: BP 128/73
[2021-04-01] MEDS: QUETIAPINE 25MG TABLET PO SCH (17:04)
[2021-04-01 20:51] VITALS: BP 134/73
[2021-04-01] MEDS: ATORVASTATIN 20 MG TABLET PO SCH (21:31)
[2021-04-01] MEDS: MELATONIN 5 MG TABLET PO PRN (21:31)
[2021-04-01] MEDS ORDERED: QUETIAPINE 100MG TABLET PO SCH (22:00)
[2021-04-02 01:05] VITALS: BP 105/68
[2021-04-02] MEDS: PANTOPRAZOLE 40MG TABLET PO SCH ×2 (05:25→16:42)
[2021-04-02] MEDS: QUETIAPINE 25MG TABLET PO SCH (05:25)
[2021-04-02] MEDS: OXYcodone IR 5MG TABLET PO PRN (05:25)
[2021-04-02 06:16] LABS: BASOPHILS % (AUTO) 1 % (0-1); EOSINOPHILS % (AUTO) 2 % (1-7); LYMPHOCYTES % (AUTO) 16 % (22-44); MEAN CORPUSCULAR HEMOGLOBIN 31.4 pg (27.5-34.5); MEAN CORPUSCULAR HGB CONC 33.7 g/dL (33.2-36.2); MEAN PLATELET VOLUME 9.5 fL (7.4-10.4); MONOCYTES % (AUTO) 10 % (2-9); NEUTROPHILS % (AUTO) 72 % (42-75); PLATELET COUNT 194 x10^3/uL (130-400); RED BLOOD COUNT 3.05 x10^6/uL (4.38-5.82); RED CELL DISTRIBUTION WIDTH 16.6 % (9.4-14.8)
[2021-04-02 06:27] LABS: ALANINE AMINOTRANSFERASE 15 U/L (12-78); ALBUMIN 2.1 g/dL (3.4-5.0); ANION GAP 6 mmol/L (5-15); CALCIUM 9.2 mg/dL (8.5-10.1); CHLORIDE 111 mmol/L (98-107); CREATININE 1.04 mg/dL (0.7-1.3)
[2021-04-02 06:29] LABS: ALKALINE PHOSPHATASE 91 U/L (45-117); BILIRUBIN,TOTAL 0.5 mg/dL (0.2-1.0); TOTAL PROTEIN 5.9 g/dL (6.4-8.2)
[2021-04-02] MEDS: SUCRALFATE 1 GM/10 ML UDC PO SCH ×4 (06:50→20:19)
[2021-04-02 07:10] VITALS: BP 100/64
[2021-04-02] MEDS: INSULIN LISPRO 100 UNITS/ML, PEN SQ-INSULIN SCH ×4 (08:02→20:22)
[2021-04-02] MEDS: POTASSIUM CHLORIDE 20 MEQ PACKET PO SCH ×2 (08:03→16:37)
[2021-04-02] MEDS: SODIUM CHLORIDE FLUSH 10ML SYR IVF SCH ×2 (08:03→20:19)
[2021-04-02] MEDS: ALLOPURINOL 300 MG TABLET PO SCH (08:03)
[2021-04-02] MEDS: ATENOLOL 50 MG TABLET PO SCH (08:04)
[2021-04-02] MEDS: CYANOCOBALOMIN 100MCG TABLET PO SCH (08:04)
[2021-04-02] MEDS: TAMSULOSIN 0.4 MG CAP.ER.24H PO SCH (08:04)
[2021-04-02] MEDS ORDERED: INSULIN GLARGINE 100 UNITS/ML, PEN SQ-INSULIN SCH (09:00)
[2021-04-02 13:30] VITALS: BP 121/67
[2021-04-02] MEDS: QUETIAPINE 200 MG TABLET PO SCH (18:22)
[2021-04-02 19:27] VITALS: BP 104/67
[2021-04-02] MEDS: ATORVASTATIN 20 MG TABLET PO SCH (20:19)
[2021-04-03 02:12] VITALS: BP 140/66
[2021-04-03 06:39] VITALS: BP 119/73
[2021-04-03] MEDS: INSULIN LISPRO 100 UNITS/ML, PEN SQ-INSULIN SCH ×4 (07:00→21:37)
[2021-04-03] MEDS: SUCRALFATE 1 GM/10 ML UDC PO SCH ×4 (07:34→21:37)
[2021-04-03] MEDS: POTASSIUM CHLORIDE 20 MEQ PACKET PO SCH ×2 (07:37→16:06)
[2021-04-03] MEDS: QUETIAPINE 25MG TABLET PO SCH (08:10)
[2021-04-03] MEDS: PANTOPRAZOLE 40MG TABLET PO SCH ×2 (08:10→16:05)
[2021-04-03] MEDS: ALLOPURINOL 300 MG TABLET PO SCH (08:12)
[2021-04-03] MEDS: TAMSULOSIN 0.4 MG CAP.ER.24H PO SCH (08:12)
[2021-04-03] MEDS: CYANOCOBALOMIN 100MCG TABLET PO SCH (08:12)
[2021-04-03] MEDS: ATENOLOL 50 MG TABLET PO SCH (08:12)
[2021-04-03] MEDS: INSULIN GLARGINE 100 UNITS/ML, PEN SQ-INSULIN SCH (08:20)
[2021-04-03] MEDS: SODIUM CHLORIDE FLUSH 10ML SYR IVF SCH ×2 (08:29→21:00)
[2021-04-03 12:03] VITALS: BP 100/64
[2021-04-03] MEDS: QUETIAPINE 200 MG TABLET PO SCH (16:05)
[2021-04-03 19:04] VITALS: BP 107/65
[2021-04-03] MEDS: ATORVASTATIN 20 MG TABLET PO SCH (21:37)
[2021-04-04 00:18] VITALS: BP 122/73
[2021-04-04] MEDS: PANTOPRAZOLE 40MG TABLET PO SCH ×2 (05:51→16:44)
[2021-04-04 06:52] VITALS: BP 135/78
[2021-04-04] MEDS: INSULIN LISPRO 100 UNITS/ML, PEN SQ-INSULIN SCH ×4 (06:59→21:26)
[2021-04-04] MEDS: SUCRALFATE 1 GM/10 ML UDC PO SCH ×4 (08:44→21:26)
[2021-04-04] MEDS: POTASSIUM CHLORIDE 20 MEQ PACKET PO SCH ×2 (08:44→16:38)
[2021-04-04] MEDS: ALLOPURINOL 300 MG TABLET PO SCH (08:45)
[2021-04-04] MEDS: CYANOCOBALOMIN 100MCG TABLET PO SCH (08:45)
[2021-04-04] MEDS: QUETIAPINE 25MG TABLET PO SCH (08:45)
[2021-04-04] MEDS: ATENOLOL 50 MG TABLET PO SCH (08:46)
[2021-04-04] MEDS: TAMSULOSIN 0.4 MG CAP.ER.24H PO SCH (08:46)
[2021-04-04] MEDS: SODIUM CHLORIDE FLUSH 10ML SYR IVF SCH ×2 (08:49→19:49)
[2021-04-04] MEDS: INSULIN GLARGINE 100 UNITS/ML, PEN SQ-INSULIN SCH (10:13)
[2021-04-04 13:59] VITALS: BP 138/72
[2021-04-04] MEDS: SENNA/DOCUSATE TABLET PO PRN (16:06)
[2021-04-04] MEDS: POLYETHYLENE GLYCOL 17 GM PACKET PO PRN (16:06)
[2021-04-04] MEDS: metFORMIN 500 MG TABLET PO SCH (16:37)
[2021-04-04] MEDS: QUETIAPINE 200 MG TABLET PO SCH (16:37)
[2021-04-04 20:11] VITALS: BP 94/54
[2021-04-04] MEDS: MELATONIN 5 MG TABLET PO PRN (21:26)
[2021-04-04] MEDS: ATORVASTATIN 20 MG TABLET PO SCH (21:26)
[2021-04-05 01:45] VITALS: BP 98/67
[2021-04-05 04:39] LABS: BASOPHILS % (AUTO) 1 % (0-1); EOSINOPHILS % (AUTO) 3 % (1-7); LYMPHOCYTES % (AUTO) 18 % (22-44); MEAN CORPUSCULAR HEMOGLOBIN 31.4 pg (27.5-34.5); MONOCYTES % (AUTO) 8 % (2-9); NEUTROPHILS % (AUTO) 70 % (42-75); PLATELET COUNT 164 x10^3/uL (130-400); RED BLOOD COUNT 2.56 x10^6/uL (4.38-5.82); RED CELL DISTRIBUTION WIDTH 16.4 % (9.4-14.8)
[2021-04-05 04:48] LABS: CHLORIDE 113 mmol/L (98-107)
[2021-04-05 04:50] LABS: ANION GAP 5 mmol/L (5-15); CALCIUM 9.5 mg/dL (8.5-10.1); CREATININE 1.21 mg/dL (0.7-1.3)
[2021-04-05] MEDS: PANTOPRAZOLE 40MG TABLET PO SCH ×2 (06:11→16:47)
[2021-04-05 06:44] VITALS: BP 126/66
[2021-04-05] MEDS: POTASSIUM CHLORIDE 20 MEQ PACKET PO SCH ×2 (07:15→16:45)
[2021-04-05] MEDS: metFORMIN 500 MG TABLET PO SCH ×2 (07:15→16:45)
[2021-04-05] MEDS: SUCRALFATE 1 GM/10 ML UDC PO SCH ×4 (07:15→21:52)
[2021-04-05] MEDS: INSULIN LISPRO 100 UNITS/ML, PEN SQ-INSULIN SCH ×4 (07:15→21:52)
[2021-04-05] MEDS: QUETIAPINE 25MG TABLET PO SCH (07:20)
[2021-04-05] MEDS: SODIUM CHLORIDE FLUSH 10ML SYR IVF SCH ×2 (09:00→21:52)
[2021-04-05] MEDS: CYANOCOBALOMIN 100MCG TABLET PO SCH (09:46)
[2021-04-05] MEDS: TAMSULOSIN 0.4 MG CAP.ER.24H PO SCH (09:46)
[2021-04-05] MEDS: ATENOLOL 50 MG TABLET PO SCH (09:46)
[2021-04-05] MEDS: ALLOPURINOL 300 MG TABLET PO SCH (09:46)
[2021-04-05] MEDS: INSULIN GLARGINE 100 UNITS/ML, PEN SQ-INSULIN SCH (10:06)
[2021-04-05 14:01] VITALS: BP 110/58
[2021-04-05] MEDS: QUETIAPINE 200 MG TABLET PO SCH (16:45)
[2021-04-05 20:35] VITALS: BP 109/64
[2021-04-05] MEDS: ATORVASTATIN 20 MG TABLET PO SCH (21:52)
[2021-04-06 01:54] VITALS: BP 134/78
[2021-04-06 06:04] LABS: BASOPHILS % (AUTO) 1 % (0-1); EOSINOPHILS % (AUTO) 3 % (1-7); LYMPHOCYTES % (AUTO) 19 % (22-44); MEAN CORPUSCULAR HEMOGLOBIN 31.1 pg (27.5-34.5); MEAN PLATELET VOLUME 9.8 fL (7.4-10.4); MONOCYTES % (AUTO) 7 % (2-9); NEUTROPHILS % (AUTO) 70 % (42-75); PLATELET COUNT 172 x10^3/uL (130-400); RED BLOOD COUNT 2.87 x10^6/uL (4.38-5.82)
[2021-04-06 06:20] LABS: ALBUMIN 1.9 g/dL (3.4-5.0); ANION GAP 5 mmol/L (5-15); CALCIUM 9.4 mg/dL (8.5-10.1); CHLORIDE 112 mmol/L (98-107)
[2021-04-06] MEDS: SUCRALFATE 1 GM/10 ML UDC PO SCH ×4 (06:20→22:34)
[2021-04-06] MEDS: PANTOPRAZOLE 40MG TABLET PO SCH ×2 (06:20→17:16)
[2021-04-06] MEDS: SENNA/DOCUSATE TABLET PO PRN (06:20)
[2021-04-06 06:24] LABS: ALANINE AMINOTRANSFERASE 11 U/L (12-78); ALKALINE PHOSPHATASE 89 U/L (45-117); BILIRUBIN,TOTAL 0.3 mg/dL (0.2-1.0); CREATININE 1.04 mg/dL (0.7-1.3); TOTAL PROTEIN 5.9 g/dL (6.4-8.2)
[2021-04-06] MEDS: INSULIN LISPRO 100 UNITS/ML, PEN SQ-INSULIN SCH ×4 (08:07→22:35)
[2021-04-06] MEDS: QUETIAPINE 25MG TABLET PO SCH (08:08)
[2021-04-06] MEDS: TAMSULOSIN 0.4 MG CAP.ER.24H PO SCH (08:08)
[2021-04-06] MEDS: ALLOPURINOL 300 MG TABLET PO SCH (08:08)
[2021-04-06] MEDS: POTASSIUM CHLORIDE 20 MEQ PACKET PO SCH ×2 (08:08→17:15)
[2021-04-06] MEDS: CYANOCOBALOMIN 100MCG TABLET PO SCH (08:09)
[2021-04-06] MEDS: ATENOLOL 50 MG TABLET PO SCH (08:09)
[2021-04-06] MEDS: metFORMIN 500 MG TABLET PO SCH ×2 (08:09→17:16)
[2021-04-06] MEDS: SODIUM CHLORIDE FLUSH 10ML SYR IVF SCH ×2 (08:12→22:34)
[2021-04-06] MEDS: INSULIN GLARGINE 100 UNITS/ML, PEN SQ-INSULIN SCH (08:13)
[2021-04-06 09:26] VITALS: BP 105/68
[2021-04-06 13:42] VITALS: BP 100/64
[2021-04-06] MEDS ORDERED: BISACODYL 10 MG SUPP PR PRN (16:30)
[2021-04-06] MEDS: QUETIAPINE 200 MG TABLET PO SCH (17:16)
[2021-04-06 20:22] VITALS: BP 129/73
[2021-04-06] MEDS: ATORVASTATIN 20 MG TABLET PO SCH (22:34)
[2021-04-06] MEDS: POLYETHYLENE GLYCOL 17 GM PACKET PO PRN ×2 (22:37→22:42)
[2021-04-06] MEDS: OXYcodone IR 5MG TABLET PO PRN (22:37)
[2021-04-07 00:13] VITALS: BP 74/73
[2021-04-07] MEDS: SUCRALFATE 1 GM/10 ML UDC PO SCH ×4 (06:33→21:02)
[2021-04-07] MEDS: SENNA/DOCUSATE TABLET PO PRN ×2 (06:34→16:25)
[2021-04-07] MEDS: PANTOPRAZOLE 40MG TABLET PO SCH ×2 (06:34→16:28)
[2021-04-07 06:37] VITALS: BP 128/74
[2021-04-07] MEDS: INSULIN LISPRO 100 UNITS/ML, PEN SQ-INSULIN SCH ×4 (07:00→21:01)
[2021-04-07] MEDS: ATENOLOL 50 MG TABLET PO SCH (08:33)
[2021-04-07] MEDS: QUETIAPINE 25MG TABLET PO SCH (08:33)
[2021-04-07] MEDS: TAMSULOSIN 0.4 MG CAP.ER.24H PO SCH (08:33)
[2021-04-07] MEDS: SODIUM CHLORIDE FLUSH 10ML SYR IVF SCH ×2 (08:33→21:02)
[2021-04-07] MEDS: CYANOCOBALOMIN 100MCG TABLET PO SCH (08:33)
[2021-04-07] MEDS: metFORMIN 500 MG TABLET PO SCH ×2 (08:33→16:24)
[2021-04-07] MEDS: POTASSIUM CHLORIDE 20 MEQ PACKET PO SCH ×2 (08:34→16:25)
[2021-04-07] MEDS: ALLOPURINOL 300 MG TABLET PO SCH (08:34)
[2021-04-07] MEDS: INSULIN GLARGINE 100 UNITS/ML, PEN SQ-INSULIN SCH (08:38)
[2021-04-07] MEDS: OXYcodone IR 5MG TABLET PO PRN ×2 (10:57→21:01)
[2021-04-07 13:55] VITALS: BP 114/69
[2021-04-07] MEDS: QUETIAPINE 200 MG TABLET PO SCH (16:24)
[2021-04-07 19:57] VITALS: BP 117/66
[2021-04-07] MEDS: ATORVASTATIN 20 MG TABLET PO SCH (21:01)
[2021-04-08 03:36] VITALS: BP 115/74
[2021-04-08] MEDS: PANTOPRAZOLE 40MG TABLET PO SCH ×2 (06:05→16:00)
[2021-04-08] MEDS: SUCRALFATE 1 GM/10 ML UDC PO SCH ×3 (06:05→15:59)
[2021-04-08] MEDS: INSULIN LISPRO 100 UNITS/ML, PEN SQ-INSULIN SCH ×3 (07:00→16:32)
[2021-04-08 07:48] VITALS: BP 110/58
[2021-04-08] MEDS: ALLOPURINOL 300 MG TABLET PO SCH (08:33)
[2021-04-08] MEDS: CYANOCOBALOMIN 100MCG TABLET PO SCH (08:33)
[2021-04-08] MEDS: metFORMIN 500 MG TABLET PO SCH ×2 (08:33→15:59)
[2021-04-08] MEDS: POTASSIUM CHLORIDE 20 MEQ PACKET PO SCH (08:33)
[2021-04-08] MEDS: TAMSULOSIN 0.4 MG CAP.ER.24H PO SCH (08:34)
[2021-04-08] MEDS: ATENOLOL 50 MG TABLET PO SCH (08:34)
[2021-04-08] MEDS: QUETIAPINE 25MG TABLET PO SCH (08:34)
[2021-04-08] MEDS: SODIUM CHLORIDE FLUSH 10ML SYR IVF SCH (08:38)
[2021-04-08] MEDS: INSULIN GLARGINE 100 UNITS/ML, PEN SQ-INSULIN SCH (08:39)
[2021-04-08] MEDS: SENNA/DOCUSATE TABLET PO PRN (11:48)
[2021-04-08] MEDS: OXYcodone IR 5MG TABLET PO PRN (11:50)
[2021-04-08 12:32] VITALS: BP 111/63
[2021-04-08] MEDS: QUETIAPINE 200 MG TABLET PO SCH (15:59)
[2021-04-08] MEDS ORDERED: PANT40TA6 PO (16:17)
[2021-04-08] MEDS ORDERED: QUET25TA7 PO (16:17)
[2021-04-08] MEDS ORDERED: INSU100I11 SQ-INSULIN (16:17)
[2021-04-08] MEDS ORDERED: SUCR1ORA5 PO (16:17)
[2021-04-08] MEDS ORDERED: INSU100I13 SQ-INSULIN (16:17)
[2021-04-08] MEDS ORDERED: QUET200T PO (16:17)
[2021-04-08] MEDS ORDERED: METF500T17 PO (16:17)
== END 2021-04-08 17:30 | DRG 637 ==
LOC: SUATTDRO 11:40 → ED 12:20 → EDIP 12:55 → CCU 13:49 → 3N 03-24 10:34
PROVIDERS: ADMIT Internal Medicine; ATTEND Internal Medicine
PROC: 02HV33Z Insertion of Infusion Device into Superior Vena Cava, Percutaneous Approach (ICD-10-PCS; 2021-03-22)
PROC: B548ZZA Ultrasonography of Superior Vena Cava, Guidance (ICD-10-PCS; 2021-03-22)
PROC: 0DB68ZX Excision of Stomach, Via Natural or Artificial Opening Endoscopic, Diagnostic (ICD-10-PCS; 2021-03-30)
PROC: 30233N1 Transfusion of Nonautologous Red Blood Cells into Peripheral Vein, Percutaneous Approach (ICD-10-PCS; 2021-03-30)
PROC: 0DB38ZX Excision of Lower Esophagus, Via Natural or Artificial Opening Endoscopic, Diagnostic (ICD-10-PCS; principal; 2021-03-30 10:00)
DX: E11.10 Type 2 diabetes mellitus with ketoacidosis without coma (principal); G93.41 Metabolic encephalopathy; N17.0 Acute kidney failure with tubular necrosis; R65.10 Systemic inflammatory response syndrome (SIRS) of non-infectious origin without acute organ dysfunction; E87.0 Hyperosmolality and hypernatremia; D62 Acute posthemorrhagic anemia; K92.1 Melena; E87.1 Hypo-osmolality and hyponatremia; D69.6 Thrombocytopenia, unspecified; D72.829 Elevated white blood cell count, unspecified; E11.649 Type 2 diabetes mellitus with hypoglycemia without coma; E21.0 Primary hyperparathyroidism; Z20.822 Contact with and (suspected) exposure to COVID-19; E53.8 Deficiency of other specified B group vitamins; E78.5 Hyperlipidemia, unspecified; E86.0 Dehydration; E87.6 Hypokalemia; I10 Essential (primary) hypertension; K20.90 Esophagitis, unspecified without bleeding; K29.50 Unspecified chronic gastritis without bleeding; K44.9 Diaphragmatic hernia without obstruction or gangrene; K64.9 Unspecified hemorrhoids; M10.9 Gout, unspecified; N40.0 Benign prostatic hyperplasia without lower urinary tract symptoms; R13.10 Dysphagia, unspecified; R00.0 Tachycardia, unspecified; R06.82 Tachypnea, not elsewhere classified; R41.89 Other symptoms and signs involving cognitive functions and awareness; Z78.1 Physical restraint status; Z85.46 Personal history of malignant neoplasm of prostate
CPT/HCPCS: 36415; 36573; 70450; 71045; 74220; 80048; 80053; 80061; 81003; 82010; 82140; 82272; 82306; 82310; 82330; 82607; 82728; 82800; 82803; 82947; 82962; 83036; 83540; 83550; 83690; 83735; 83930; 83970; 84100; 84295; 84443; 85018; 85025; 85610; 86022; 86850; 86900; 86923; 87081; 87635; 88305; 93005; 96360; 96361; G0378; J1650; J1815; J2405; J2704; J2997; J3480; J7070; C1751; C9113; J1652; J3475; J7030; J7040; J7050; J7120; P9016